=== PATIENT | male | born 1985 | race Caucasian/White ===

== ENCOUNTER 2023-10-08 12:56 | Emergency (ER) | payer MEDICAID ==
[~2023-10-08] VITALS: Ht 172.7 cm; Wt 89.4 kg
[2023-10-08 14:08] LABS: BASOPHILS % (AUTO) 0.6 % (0-1); EOSINOPHILS # (AUTO) 0.3 X10'3 (0-0.9); EOSINOPHILS % (AUTO) 3.2 % (0-6); HEMATOCRIT 41.7 % (42.0-52.0); HEMOGLOBIN 14.2 g/dl (14.0-17.9); LYMPHOCYTES # (AUTO) 2.4 X10'3 (1.1-4.8); LYMPHOCYTES % (AUTO) 30.1 % (21-51); MEAN CORPUSCULAR HEMOGLOBIN 29.7 PG (27.0-31.0); MEAN CORPUSCULAR HGB CONC 34.1 g/dL (33.0-36.5); MEAN CORPUSCULAR VOLUME 87.3 FL (78-98); MONOCYTES # (AUTO) 0.6 X10'3 (0-0.9); MONOCYTES % (AUTO) 7.3 % (2-12); NEUTROPHILS # (AUTO) 4.7 X10'3 (1.8-7.7); NEUTROPHILS % (AUTO) 58.8 % (42-75); PLATELET COUNT 264 X10'3 (140-440); RED BLOOD COUNT 4.78 X10'6 (4.70-6.10); RED CELL DISTRIBUTION WIDTH 13.5 % (11.5-14.5)
[2023-10-08 14:28] LABS: ALANINE AMINOTRANSFERASE 51 U/L (12-78); ALBUMIN 4.1 G/DL (3.4-5.0); ALBUMIN/GLOBULIN RATIO 0.9 (1.1-1.5); ALKALINE PHOSPHATASE 60 IU/L (46-116); ANION GAP 10 (8-16); ASPARTATE AMINO TRANSFERASE 25 U/L (10-37); BILIRUBIN,TOTAL 0.3 MG/DL (0.1-1.0); BLOOD UREA NITROGEN 12 MG/DL (7-18); BUN/CREATININE RATIO 14.5 (10.0-20.0); CALCIUM 9.2 MG/DL (8.5-10.1); CHLORIDE 102 MMOL/L (99-107); CREATININE 0.83 MG/DL (0.60-1.10); GLUCOSE 98 MG/DL (70-104); POTASSIUM 4.8 MMOL/L (3.5-5.1); SODIUM 138 MMOL/L (135-145); TOTAL CARBON DIOXIDE 25.8 MMOL/L (24-32); TOTAL PROTEIN 8.5 G/DL (6.4-8.2); eCRCL 119 ML/MIN; eGFR > 90 ML/MIN
[2023-10-08] MEDS ORDERED: HYDR-3686 PO (15:06)
[2023-10-08 15:19] VITALS: BP 129/92; PULSE 60; RESP 16; TEMP 97.8; O2SAT 97
== END 2023-10-08 15:21 | disposition home or self-care (01) ==
LOC: ER 12:57
DX: G47.00 Insomnia, unspecified (principal)
CPT/HCPCS: 36415; 71045; 80053; 85025; 99284

== ENCOUNTER 2024-03-14 21:43 | Emergency (ER) | payer MEDICAID ==
[~2024-03-14] VITALS: Ht 172.7 cm; Wt 86.4 kg
[2024-03-14 23:56] VITALS: BP 140/89; PULSE 101; RESP 20; TEMP 100; O2SAT 99
== END 2024-03-14 23:57 | disposition home or self-care (01) ==
LOC: ER 21:44
DX: J22 Unspecified acute lower respiratory infection (principal); Z20.822 Contact with and (suspected) exposure to COVID-19
CPT/HCPCS: 36415; 87811; 99283